=== PATIENT | male | born 1985 | race Two or more races ===

== ENCOUNTER → 2017-09-30 | Outpatient (REF) | payer BC | LOC: M SMT 13:14 | DX: Z30.9 Encounter for contraceptive management, unspecified (principal) ==

== ENCOUNTER → 2017-11-27 | Outpatient (REF) | payer BC ==
[2017-11-27 12:40] LABS: IMMMOTILE SPERM CENTRIFUGED ABSENT (ABSENT); IMMOTILE SPERM ABSENT (ABSENT); MOTILE SPERM ABSENT (ABSENT); MOTILE SPERM CENTRIFUGED ABSENT (ABSENT); SEMEN APPEARANCE OPAQUE (OPAQUE); SEMEN VISCOSITY LIQUID (LIQUID); SEMEN VOLUME 2.5 ml (4.0-5.0); SEMEN pH 8.5 (7.0-8.0); WBC CONCENTRATION >1 M/ml (<=1 M/ml)
== END ==
LOC: M SMT 12:15
DX: Z30.9 Encounter for contraceptive management, unspecified (principal)